=== PATIENT | female | born 1970 | race Caucasian/White ===

== ENCOUNTER 2017-12-03 04:25 | Inpatient (IN) | payer BC ==
[~2017-12-03] VITALS: Ht 160 cm; Wt 80.8 kg
[2017-12-03] MEDS ORDERED: HYDROmorphone 2 MG/ML, 1ML ONE ×2 (06:14→07:25)
[2017-12-03] MEDS: HYDROmorphone 2 MG/ML, 1ML IV PRN ×2 (06:20→07:28)
[2017-12-03 06:29] LABS: MICROSCOPIC INDICATED
[2017-12-03] MEDS ORDERED: SODIUM CHLORIDE FLUSH 10ML SYR IVF ONE (06:30)
[2017-12-03] MEDS ORDERED: SODIUM CHLORIDE 0.9%, 500ML IVBOLUS ONE (06:30)
[2017-12-03 06:36] LABS: BASOPHILS # (AUTO) 0.04 x10^3/uL (0-0.1); BASOPHILS % (AUTO) 0 % (0-1); EOSINOPHILS % (AUTO) 1 % (1-7); LYMPHOCYTES # (AUTO) 1.56 x10^3/uL (1-3.4); LYMPHOCYTES % (AUTO) 13 % (22-44); MD NO; MEAN CORPUSCULAR HEMOGLOBIN 31.6 pg (27.0-34.8); MEAN CORPUSCULAR HGB CONC 34.8 g/dL (32.4-35.8); MEAN PLATELET VOLUME 8.1 fL (7.4-10.4); MONOCYTES # (AUTO) 1.08 x10^3/uL (0.2-0.8); MONOCYTES % (AUTO) 9 % (2-9); NEUTROPHILS # (AUTO) 9.56 x10^3/uL (1.8-6.8); NEUTROPHILS % (AUTO) 78 % (42-75); PLATELET COUNT 354 x10^3/uL (130-400); RED BLOOD COUNT 4.56 x10^6/uL (3.82-5.3); RED CELL DISTRIBUTION WIDTH 12.5 % (9.6-15.2)
[2017-12-03] MEDS ORDERED: OMNIPAQUE 350 MG/ML, 100ML BOTTLE ONE (06:37)
[2017-12-03 06:39] LABS: CULTURE INDICATED? YES
[2017-12-03 06:45] LABS: ALANINE AMINOTRANSFERASE 12 U/L (12-78); ALBUMIN 3.3 g/dL (3.4-5.0); ANION GAP 8 mmol/L (5-15); CALCIUM 8.9 mg/dL (8.5-10.1); CHLORIDE 106 mmol/L (98-107); CREATININE 0.87 mg/dL (0.55-1.02)
[2017-12-03 06:49] LABS: ALKALINE PHOSPHATASE 49 U/L (45-117); BILIRUBIN,TOTAL 0.6 mg/dL (0.2-1.0); TOTAL PROTEIN 7.7 g/dL (6.4-8.2); TROPONIN I < 0.015 ng/mL (0.000-0.045)
[2017-12-03] MEDS ORDERED: ENOXAPARIN 80 MG/0.8 ML SQ ONE (07:26)
[2017-12-03 09:02] VITALS: BP 101/71
[2017-12-03] MEDS ORDERED: ONDANSETRON ODT 4 MG PO PRN (09:30)
[2017-12-03] MEDS ORDERED: TEMAZEPAM 15 MG CAPSULE PO PRN (09:30)
[2017-12-03] MEDS ORDERED: ONDANSETRON 2MG/ML, 2ML IVPush PRN (09:30)
[2017-12-03] MEDS ORDERED: ENOXAPARIN 80 MG/0.8 ML SQ SCH (10:00)
[2017-12-03] MEDS: HYDROmorphone 2 MG/ML, 1ML IVPush PRN ×2 (10:11→15:46)
[2017-12-03] MEDS: NICOTINE 21 MG/24 HR PATCH.TD24 TD SCH (10:18)
[2017-12-03 10:29] VITALS: BP 101/71
[2017-12-03] MEDS ORDERED: ALBUTEROL/IPRATROPIUM 2.5MG/0.5MG, 3 ML ONE (11:23)
[2017-12-03] MEDS: ALBUTEROL/IPRATROPIUM 2.5MG/0.5MG, 3 ML NPPB PRN (11:30)
[2017-12-03] MEDS: HYDROcodone/APAP 5/325 TABLET PO PRN (12:21)
[2017-12-03 13:37] VITALS: BP 101/68
[2017-12-03 18:54] VITALS: BP 96/65
[2017-12-03] MEDS: ACETAMINOPHEN 325 MG TABLET PO PRN (19:44)
[2017-12-03] MEDS: ENOXAPARIN 80 MG/0.8 ML SQ SCH (19:45)
[2017-12-04 00:10] VITALS: BP 100/63
[2017-12-04] MEDS: HYDROcodone/APAP 5/325 TABLET PO PRN ×2 (00:32→08:29)
[2017-12-04] MEDS: ACETAMINOPHEN 325 MG TABLET PO PRN (05:47)
[2017-12-04 06:10] LABS: ANION GAP 7 mmol/L (5-15); CALCIUM 8.5 mg/dL (8.5-10.1); CHLORIDE 107 mmol/L (98-107)
[2017-12-04 06:13] LABS: BASOPHILS # (AUTO) 0.06 x10^3/uL (0-0.1); BASOPHILS % (AUTO) 1 % (0-1); EOSINOPHILS # (AUTO) 0.12 x10^3/uL (0-0.4); EOSINOPHILS % (AUTO) 1 % (1-7); LYMPHOCYTES # (AUTO) 2.13 x10^3/uL (1-3.4); LYMPHOCYTES % (AUTO) 24 % (22-44); MD NO; MEAN CORPUSCULAR HEMOGLOBIN 31.2 pg (27.0-34.8); MEAN CORPUSCULAR HGB CONC 34.1 g/dL (32.4-35.8); MEAN CORPUSCULAR VOLUME 91.7 fL (80-100); MEAN PLATELET VOLUME 8.3 fL (7.4-10.4); MONOCYTES # (AUTO) 0.86 x10^3/uL (0.2-0.8); MONOCYTES % (AUTO) 10 % (2-9); NEUTROPHILS # (AUTO) 5.64 x10^3/uL (1.8-6.8); NEUTROPHILS % (AUTO) 64 % (42-75); PLATELET COUNT 325 x10^3/uL (130-400); RED BLOOD COUNT 3.86 x10^6/uL (3.82-5.3); RED CELL DISTRIBUTION WIDTH 12.6 % (9.6-15.2)
[2017-12-04 06:15] LABS: ALANINE AMINOTRANSFERASE 10 U/L (12-78); ALBUMIN 2.7 g/dL (3.4-5.0); ALKALINE PHOSPHATASE 39 U/L (45-117); BILIRUBIN,TOTAL 0.5 mg/dL (0.2-1.0); CREATININE 0.66 mg/dL (0.55-1.02); TOTAL PROTEIN 6.4 g/dL (6.4-8.2)
[2017-12-04 06:54] VITALS: BP 96/64
[2017-12-04] MEDS: ENOXAPARIN 80 MG/0.8 ML SQ SCH (08:30)
[2017-12-04] MEDS: NICOTINE 21 MG/24 HR PATCH.TD24 TD SCH (08:30)
[2017-12-04 12:19] VITALS: BP 107/71
[2017-12-04] MEDS: IBUPROFEN 200 MG TABLET PO PRN ×2 (13:31→20:25)
[2017-12-04] MEDS: ALBUTEROL/IPRATROPIUM 2.5MG/0.5MG, 3 ML NPPB PRN (13:55)
[2017-12-04] MEDS: RIVAROXABAN 15 MG TABLET PO SCH (16:41)
[2017-12-04 18:32] VITALS: BP 109/69
[2017-12-05 01:06] VITALS: BP 102/68
[2017-12-05 06:02] LABS: BASOPHILS # (AUTO) 0.03 x10^3/uL (0-0.1); BASOPHILS % (AUTO) 0 % (0-1); EOSINOPHILS # (AUTO) 0.11 x10^3/uL (0-0.4); EOSINOPHILS % (AUTO) 1 % (1-7); LYMPHOCYTES # (AUTO) 1.43 x10^3/uL (1-3.4); LYMPHOCYTES % (AUTO) 17 % (22-44); MD NO; MEAN CORPUSCULAR HEMOGLOBIN 31.2 pg (27.0-34.8); MEAN CORPUSCULAR VOLUME 91.8 fL (80-100); MEAN PLATELET VOLUME 7.9 fL (7.4-10.4); MONOCYTES # (AUTO) 0.79 x10^3/uL (0.2-0.8); MONOCYTES % (AUTO) 9 % (2-9); NEUTROPHILS # (AUTO) 6.15 x10^3/uL (1.8-6.8); NEUTROPHILS % (AUTO) 72 % (42-75); PLATELET COUNT 358 x10^3/uL (130-400); RED BLOOD COUNT 4.13 x10^6/uL (3.82-5.3); RED CELL DISTRIBUTION WIDTH 12.4 % (9.6-15.2)
[2017-12-05 08:06] VITALS: BP 116/78
[2017-12-05] MEDS: NICOTINE 21 MG/24 HR PATCH.TD24 TD SCH (08:51)
[2017-12-05] MEDS: IBUPROFEN 200 MG TABLET PO PRN (08:52)
[2017-12-05] MEDS: RIVAROXABAN 15 MG TABLET PO SCH (08:52)
[2017-12-05] MEDS ORDERED: RIVA20TA PO (13:19)
[2017-12-05] MEDS ORDERED: RIVA15TA PO (13:19)
[2017-12-26] MEDS ORDERED: RIVAROXABAN 20 MG TABLET PO SCH (08:00)
== END 2017-12-05 14:38 | disposition home or self-care (01) | DRG 299 ==
LOC: ED 07:08 → 5SO 07:30 → DCLOUNGE 12-05 14:23
PROVIDERS: ADMIT Internal Medicine; ATTEND Internal Medicine
DX: I82.431 Acute embolism and thrombosis of right popliteal vein (principal); I26.99 Other pulmonary embolism without acute cor pulmonale; I31.3 Pericardial effusion (noninflammatory); J98.11 Atelectasis; R04.2 Hemoptysis; I82.441 Acute embolism and thrombosis of right tibial vein; F17.210 Nicotine dependence, cigarettes, uncomplicated; I34.1 Nonrheumatic mitral (valve) prolapse; N20.0 Calculus of kidney; R09.1 Pleurisy; Z82.49 Family history of ischemic heart disease and other diseases of the circulatory system; Z90.710 Acquired absence of both cervix and uterus; Z87.442 Personal history of urinary calculi; Z90.711 Acquired absence of uterus with remaining cervical stump
CPT/HCPCS: 36415; 99285; J7620; 71275; 80053; 81001; 83605; 84484; 85025; 87086; 93005; 93306; 93970; 94640; 96374; G0378; J1170; J1650; Q9967; J7040